=== PATIENT | male | born 1980 | race Caucasian/White ===

== ENCOUNTER 2018-11-30 08:31 | Inpatient (IN) | payer MEDICAID ==
[2018-11-30] MEDS ORDERED: HYDROmorphone 0.5 MG/0.5 ML SYRINGE ONE (10:42)
[2018-11-30 14:50] VITALS: BMI 44.3
[2018-11-30] MEDS ORDERED: Ondansetron ODT 4 MG TAB PO PRN (15:57)
[2018-11-30] MEDS ORDERED: Ondansetron PF 4 MG/2 ML Vial IVP PRN (15:57)
[2018-11-30] MEDS ORDERED: Acetaminophen 650 MG Suppository PR PRN (15:57)
[2018-11-30] MEDS ORDERED: Acetaminophen 325 MG TAB PO PRN (15:57)
[2018-11-30] MEDS ORDERED: Dextrose 5% in Water 1,000 ML IV PRN (16:17)
[2018-11-30] MEDS ORDERED: Dextrose 50% Abboject 50 ML SYRINGE SLOW IVP PRN (16:17)
[2018-11-30] MEDS ORDERED: HumaLOG 300 UNITS/3 ML VIAL SC PRN (16:17)
[2018-11-30] MEDS ORDERED: Ampicillin/Sulbactam 3 GM in Sodium Chloride 0.9% 100 ML IVPB SCH (16:30)
[2018-11-30] MEDS: Chlorhexidine Gluconate 15 ML UDCUP SSP SCH (16:58)
[2018-11-30] MEDS: Dexamethasone 4 MG TAB PO SCH (16:59)
[2018-11-30] MEDS: traMADol HCl 50 MG TAB PO PRN ×2 (17:02→20:45)
[2018-11-30 17:05] LABS: #Eosinphils 0.1 thou/uL (0.0-0.7); #Lymphocytes 2.5 thou/uL (1.20-3.40); #Monocytes 0.8 thou/uL (0.11-0.59); %Basophils 0.2 % (0.0-1.0); %Eosinophils 1.1 % (0.0-10.0); %Lymphocytes 22.1 % (21.0-51.0); %Monocytes 6.6 % (0.0-10.0); Hemoglobin 14.5 g/dL (14.0-18.0); Mean Corpuscular HGB CONC 33.7 g/dL (32.0-36.0); Mean Corpuscular Hemoglobin 30.7 pg (27.0-31.0); Mean Corpuscular Volume 90.9 fL (78.0-98.0); Mean Platelet Volume 7.1 fL (7.4-10.4); Platelet Count 250 thou/uL (130-400); RBC Distribution Width 12.3 % (11.5-14.5); Red Blood Cell (RBC) Count 4.72 mill/uL (4.70-6.10); White Blood Cell (WBC) Count 11.4 thou/uL (4.8-10.8)
[2018-11-30] MEDS: Sodium Chloride 0.9% 1,000 ML IV SCH (17:06)
[2018-11-30 17:19] LABS: Lactic Acid 1.3 mmol/L (0.5-2.2)
[2018-11-30 17:26] LABS: ALT (SGPT) 44 U/L (8-55); AST (SGOT) 24 U/L (5-34); Albumin 4.1 g/dL (3.5-5.0); Alkaline Phosphatase 54 U/L (40-150); Anion Gap 14 mmol/L (10-20); BUN (Urea Nitrogen) 13 mg/dL (8.9-20.6); Bilirubin, Total 0.5 mg/dL (0.2-1.2); Calc. Creatinine Clearance 308 mL/min (70-130); Calcium 9.2 mg/dL (7.8-10.44); Carbon Dioxide 21 mmol/L (22-29); Chloride 106 mmol/L (98-107); Estimated GFR-MDRD Greater than 90; Globulin 2.8 g/dL (2.4-3.5); Glucose 139 mg/dL (70-105); Potassium 3.7 mmol/L (3.5-5.1); Protein, Total 6.9 g/dL (6.0-8.3); Sodium 137 mmol/L (136-145)
[2018-11-30] MEDS ORDERED: Morphine 4 MG/ML VIAL SLOW IVP SCH (17:30)
--- NOTE | 2018-11-30 17:49 | HP ---
CHIEF COMPLAINT: Right-sided facial pain and facial swelling. HISTORY OF PRESENT ILLNESS: Mr. Sinha is a 38-year-old man, who presents with complaints of right upper tooth pain, that started 2 days ago, with associated swelling to the right cheek, which he self treated with leftover prednisone and Augmentin he had from a previous bronchitis infection. The patient did not seek any medical attention. He noted progressive worsening with generalized swelling of his cheek and lips with increasing pain involving to his nose. The patient states he has been trying to use his CPAP machine, which has been causing increasing discomfort and swelling. He therefore has had difficulty sleeping as unable to tolerate the machine. The patient denies any fevers, chills or sweats. He denies any difficulty swallowing or tongue swelling. No difficulty breathing. He denies having any chest pain. Denies having any nausea or vomiting. He initially presented to [facility], where he was treated with Zosyn and also given Dilaudid for pain. The patient states he has had dental abscesses before and has poor oral dentition. He has had oral surgery in the past due to removal of an impacted wisdom tooth. While in the emergency department, the patient underwent laboratory studies, which showed a white count of 14 and electrolytes were unremarkable as well as his renal function. No lactic acid was done. Per outside reports, he had no documented fevers and vital signs were unremarkable. The patient also underwent CT imaging of the face, sinus/jaw with contrast; however, no report is available. Dr. Torres is reviewing CD with images. PAST MEDICAL HISTORY: 1. Chronic back pain. 2. History of bronchitis. 3. Diabetes mellitus, type 2. 4. Chronic neck pain. 5. Neuropathy. 6. Sleep apnea. PAST SURGICAL HISTORY: 1. Cholecystectomy. 2. Surgery to the C-spine. SOCIAL HISTORY: The patient does smoke. Denies any alcohol use or illicit drug use. He smokes one pack per day for the last 20 years. ALLERGIES: DARVOCET. CURRENT MEDICATIONS: 1. Gabapentin. 2. Hydroxyzine. 3. Celexa. PHYSICAL EXAMINATION: GENERAL: The patient appears obese, well developed, and in no acute distress. Found sat up on the side of the bed. VITAL SIGNS: Temperature 97.4, pulse 75, respirations 16, O2 sat 93%, and blood pressure 123/69. HEENT: Normocephalic and atraumatic. Obvious facial swelling with oral swelling as well. No periorbital swelling. There is no warmth or edema noted. Tongue appears unremarkable. No drooling or stridor. The patient with tenderness to palpation of the right maxillary sinus and extending up to the bridge of his nose. No pain with palpation to the left maxillary sinus. No TMJ locking or pain. Poor general dentition. No bleeding. Complete oral exam completed by Dr. Torres. NECK: Supple without lymphadenopathy. LUNGS: Clear to auscultation bilaterally. CARDIAC: Regular rate and rhythm. CHEST: No chest wall tenderness. ABDOMEN: Obese, soft, nontender, and nondistended. Normoactive bowel sounds present. EXTREMITIES: No lower leg swelling or edema. NEUROLOGIC: Alert and oriented x3. SKIN: Without rash or jaundice. INVESTIGATIONS: As mentioned above in HPI. IMPRESSION AND PLAN: Mr. Sinha is a 38-year-old male, who is being referred for management of the followin. Right maxillary dental abscess. The patient started on Zosyn in the emergency department at [place]. Seen by Dr. Torres, who has advised using Unasyn instead as well as chlorhexidine gluconate rinses q.8 hours and Decadron for a total of 3 doses to help with the associated swelling. The patient likely to be discharged in the morning as per Dr. Torres for procedure as an outpatient unless no improvement with regard to swelling and pain and unable to tolerate procedure in the clinic. Further recommendations as per Dr. Torres. 2. Diabetes mellitus. The patient is not on any medications for this. In light of recent steroids and Decadron, we will monitor glucose and initiate insulin sliding scale. 3. Gastrointestinal prophylaxis and deep venous thrombosis prophylaxis. 4. Code status full. His surrogate decision maker is his significant other, Kristy Florentino. The patient's case was discussed with Dr. Gonzales, who agrees with plan of care as described above. Job ID: [id number]
[2018-11-30] MEDS: Nicotine 14 MG PATCH TD SCH (17:52)
[2018-11-30] MEDS: Clindamycin/D5W 600 MG in Premix Bag 1 BAG IVPB SCH (17:52)
[2018-11-30] MEDS ORDERED: Morphine 2 MG/ML SYRINGE SLOW IVP SCH (18:15)
[2018-11-30] MEDS: HumaLOG 300 UNITS/3 ML VIAL SC PRN (18:26)
[2018-11-30] MEDS: Gabapentin 400 MG CAP PO SCH (20:44)
[2018-11-30] MEDS: Famotidine/PF 20 mg/2ml Vial SLOW IVP SCH (20:47)
[2018-11-30] MEDS ORDERED: Chlorhexidine Gluconate 15 ML UDCUP SSP SCH (21:00)
[2018-11-30] MEDS ORDERED: Morphine 4 MG/ML VIAL SLOW IVP PRN (21:28)
[2018-11-30] MEDS ORDERED: HYDROcodone/Acetaminophen 5/325 mg Tablet PO PRN (21:28)
[2018-11-30] MEDS: HYDROcodone/Acetaminophen 5/325 mg Tablet PO PRN (21:55)
[2018-12-01] MEDS: Clindamycin/D5W 600 MG in Premix Bag 1 BAG IVPB SCH ×4 (00:01→18:30)
[2018-12-01] MEDS: Dexamethasone 4 MG TAB PO SCH ×2 (00:02→08:54)
[2018-12-01] MEDS: Chlorhexidine Gluconate 15 ML UDCUP SSP SCH ×3 (00:03→18:01)
[2018-12-01] MEDS: Nicotine 14 MG PATCH TD SCH (04:14)
[2018-12-01 06:01] LABS: #Lymphocytes 0.9 thou/uL (1.20-3.40); #Monocytes 0.3 thou/uL (0.11-0.59); #Neutrophils 11.8 thou/uL (1.40-6.50); %Basophils 0.1 % (0.0-1.0); %Eosinophils 0.2 % (0.0-10.0); %Lymphocytes 6.6 % (21.0-51.0); %Monocytes 2.2 % (0.0-10.0); %Neutrophils 90.9 % (42.0-75.0); Hemoglobin 14.3 g/dL (14.0-18.0); Mean Corpuscular HGB CONC 33.8 g/dL (32.0-36.0); Mean Corpuscular Hemoglobin 30.5 pg (27.0-31.0); Mean Corpuscular Volume 90.4 fL (78.0-98.0); Mean Platelet Volume 7.3 fL (7.4-10.4); Platelet Count 266 thou/uL (130-400); RBC Distribution Width 12.3 % (11.5-14.5)
[2018-12-01 06:19] LABS: Anion Gap 13 mmol/L (10-20); BUN (Urea Nitrogen) 10 mg/dL (8.9-20.6); Calc. Creatinine Clearance 312 mL/min (70-130); Calcium 9.2 mg/dL (7.8-10.44); Carbon Dioxide 23 mmol/L (22-29); Chloride 104 mmol/L (98-107); Estimated GFR-MDRD Greater than 90; Glucose 200 mg/dL (70-105); Potassium 4.5 mmol/L (3.5-5.1); Sodium 135 mmol/L (136-145)
[2018-12-01] MEDS: Sodium Chloride 0.9% 1,000 ML IV SCH (07:53)
[2018-12-01] MEDS: Famotidine/PF 20 mg/2ml Vial SLOW IVP SCH ×2 (08:00→22:00)
[2018-12-01] MEDS: Gabapentin 400 MG CAP PO SCH ×3 (08:54→21:58)
[2018-12-01] MEDS: Saccharomyces boulardii 250 MG CAP PO SCH (08:54)
[2018-12-01] MEDS: Citalopram 20 MG TAB PO SCH (08:55)
--- NOTE | 2018-12-01 11:29 | PDOC.PN ---
- Subjective Encounter Start Date: 12/01/18 Encounter Start Time: 11:28 Subjective: Patient with persistent pain in left anterior maxillary region, extending -: to his nose. Significant improvement with facial/lip swelling. -: Scheduled to have surgery this afternoon at 16:00. Complaining of feeling hungry, otherwise without any complaints. No n/v. Afebrile. - Objective Resuscitation Status - Order Detail: 11/30/18 15:57 Resuscitation Status Routine Co-Sign Provider: Resuscitation Status: FULL: Full Resuscitation Vital Signs & Weight: Vital Signs (12 hours) Temp Pulse Resp BP Pulse Ox 12/01/18 08:10 95 12/01/18 08:00 97.9 F 67 16 93/61 98 12/01/18 04:18 98.2 F 76 16 113/56 L 95 11/30/18 23:54 97.9 F 71 16 119/64 96 Weight Weight 345 lb I&O: 11/30/18 12/01/18 12/02/18 06:59 06:59 06:59 Intake Total 1465 Balance 1465 Result Diagrams: 12/01/18 05:39 12/01/18 05:39 Additional Labs: Accuchecks 12/01/18 11/30/18 11/30/18 05:30 20:55 18:12 POC Glucose 192 H 228 H 201 H Phys Exam - Physical Examination Constitutional: NAD HEENT: PERRLA, moist MMs Poor dentition, unable to open his mouth fully due to pain Neck: full ROM Respiratory: no wheezing, no rales, no rhonchi, clear to auscultation bilateral Cardiovascular: RRR Gastrointestinal: soft, positive bowel sounds obese Musculoskeletal: no edema, pulses present Neurological: normal sensation, moves all 4 limbs Psychiatric: normal affect, A&O x 3 Skin: no rash Dx/Plan (1) Abscess of maxilla Code(s): M27.2 - INFLAMMATORY CONDITIONS OF JAWS Status: Acute Plan: Continue IV Abx, For surgery for extraction of 7,8,9, this afternoon. Further recommendations per Dr. Torres. (2) Hyperglycemia due to type 2 diabetes mellitus Code(s): E11.65 - TYPE 2 DIABETES MELLITUS WITH HYPERGLYCEMIA Status: Acute Plan: Continue ISS, monitor glucose. 2 of 3 doses of steroids given. Confirm if on medications at home, if so resume home regimen. Monitor glucose (3) Pain Code(s): R52 - PAIN, UNSPECIFIED Status: Acute Plan: Continue hydrocodone for pain. - Plan cont current plan of care * .
[2018-12-01] MEDS ORDERED: Lidocaine 1% PF 5 ML VIAL ONE (11:40)
[2018-12-01] MEDS ORDERED: Rocuronium Bromide 10 MG/ML (10ML VIAL) ONE (11:40)
[2018-12-01] MEDS ORDERED: Ondansetron PF 4 MG/2 ML Vial ONE (11:40)
[2018-12-01] MEDS ORDERED: Ketorolac Tromethamine 30 MG/ML VIAL ONE (11:40)
[2018-12-01] MEDS ORDERED: Glycopyrrolate 0.2 MG/ML 5 ML SYRINGE ONE (11:40)
[2018-12-01] MEDS ORDERED: PROPOFOL 200 MG/20 ML VIAL ONE (11:40)
[2018-12-01] MEDS: HumaLOG 300 UNITS/3 ML VIAL SC PRN (12:05)
[2018-12-01] MEDS ORDERED: Hydrocortisone 1% Cream 30 GM TUBE ONE (16:20)
[2018-12-01] MEDS ORDERED: Lidocaine 1% w/Epinephrine 1:100K 20 ML VIAL ONE (16:20)
[2018-12-01] MEDS ORDERED: Chlorhexidine Gluconate 15 ML UDCUP SSP ONE (16:21)
[2018-12-01] MEDS ORDERED: Sodium Chloride 0.9% 10 ML ONE (16:21)
[2018-12-01] MEDS ORDERED: Bacitracin Zinc Ointment 30 gm TUBE ONE (16:21)
[2018-12-01] MEDS ORDERED: Ophthalmic Irrigation Solution 0 ML ONE (16:24)
[2018-12-01] MEDS ORDERED: Lidocaine 2% Jelly 5 ML TUBE ONE (16:58)
[2018-12-01] MEDS ORDERED: Fentanyl 100 MCG/2 ML VIAL ONE ×3 (16:58→18:31)
[2018-12-01] MEDS ORDERED: Promethazine HCl 25 MG/ML VIAL SLOW IVP PRN (17:46)
[2018-12-01] MEDS ORDERED: Promethazine HCl 25 MG/ML VIAL IM PRN (17:46)
[2018-12-01] MEDS ORDERED: Ondansetron HCl/PF 4 MG/2 ML Vial IVP PRN (17:46)
[2018-12-01] MEDS ORDERED: Labetalol HCl 100 MG/20 ML VIAL SLOW IVP PRN (19:22)
[2018-12-01] MEDS: HYDROcodone/Acetaminophen 5/325 mg Tablet PO PRN (21:57)
[2018-12-02] MEDS: Clindamycin/D5W 600 MG in Premix Bag 1 BAG IVPB SCH ×4 (00:39→17:38)
[2018-12-02] MEDS: Chlorhexidine Gluconate 15 ML UDCUP SSP SCH ×3 (00:40→17:38)
[2018-12-02] MEDS ORDERED: Lorazepam 1 MG TAB PO SCH (01:30)
[2018-12-02] MEDS: HYDROcodone/Acetaminophen 5/325 mg Tablet PO PRN ×4 (02:26→20:25)
[2018-12-02] MEDS: Sodium Chloride 0.9% 1,000 ML IV SCH ×2 (05:19→11:24)
[2018-12-02] MEDS: HumaLOG 300 UNITS/3 ML VIAL SC PRN ×3 (06:17→17:38)
[2018-12-02 06:21] LABS: #Eosinphils 0.1 thou/uL (0.0-0.7); #Lymphocytes 2.1 thou/uL (1.20-3.40); #Monocytes 0.7 thou/uL (0.11-0.59); #Neutrophils 9.7 thou/uL (1.40-6.50); %Eosinophils 0.8 % (0.0-10.0); %Lymphocytes 16.9 % (21.0-51.0); %Monocytes 5.2 % (0.0-10.0); %Neutrophils 77.2 % (42.0-75.0); Hemoglobin 13.3 g/dL (14.0-18.0); Mean Corpuscular HGB CONC 33.9 g/dL (32.0-36.0); Mean Corpuscular Hemoglobin 30.7 pg (27.0-31.0); Mean Corpuscular Volume 90.8 fL (78.0-98.0); Mean Platelet Volume 7.4 fL (7.4-10.4); Platelet Count 225 thou/uL (130-400); RBC Distribution Width 12.4 % (11.5-14.5); Red Blood Cell (RBC) Count 4.34 mill/uL (4.70-6.10); White Blood Cell (WBC) Count 12.5 thou/uL (4.8-10.8)
[2018-12-02 06:35] LABS: Anion Gap 14 mmol/L (10-20); BUN (Urea Nitrogen) 11 mg/dL (8.9-20.6); Calc. Creatinine Clearance 292 mL/min (70-130); Calcium 8.8 mg/dL (7.8-10.44); Carbon Dioxide 23 mmol/L (22-29); Chloride 102 mmol/L (98-107); Estimated GFR-MDRD Greater than 90; Glucose 250 mg/dL (70-105); Potassium 3.5 mmol/L (3.5-5.1); Sodium 135 mmol/L (136-145)
[2018-12-02] MEDS: Citalopram 20 MG TAB PO SCH (08:36)
[2018-12-02] MEDS: Saccharomyces boulardii 250 MG CAP PO SCH (08:36)
[2018-12-02] MEDS: Gabapentin 400 MG CAP PO SCH ×3 (08:36→20:24)
[2018-12-02] MEDS: Famotidine/PF 20 mg/2ml Vial SLOW IVP SCH ×2 (08:37→20:24)
--- NOTE | 2018-12-02 13:51 | PDOC.PN ---
- Subjective Encounter Start Date: 12/02/18 Encounter Start Time: 13:49 Subjective: Patient found sleeping. States in more pain following procedure. -: Has not had anything to eat yet, though Dr. Torres cleared him to -: advance diet as tolerated. He remains afebrile. No chest pain or sob. - Objective Resuscitation Status - Order Detail: 11/30/18 15:57 Resuscitation Status Routine Co-Sign Provider: Resuscitation Status: FULL: Full Resuscitation Vital Signs & Weight: Vital Signs (12 hours) Temp Pulse Resp BP Pulse Ox 12/02/18 11:10 97.8 F 61 18 124/67 96 12/02/18 07:40 97 12/02/18 07:20 97.8 F 70 18 109/65 97 12/02/18 04:00 98.4 F 80 18 126/64 97 Weight Weight 345 lb I&O: 12/01/18 12/02/18 12/03/18 06:59 06:59 06:59 Intake Total 1465 2235 Balance 1465 2235 Result Diagrams: 12/02/18 05:59 12/02/18 05:59 Additional Labs: Accuchecks 12/02/18 12/02/18 12/01/18 10:46 06:04 20:47 POC Glucose 206 H 244 H 151 H 12/01/18 15:53 POC Glucose 155 H Phys Exam - Physical Examination Constitutional: NAD CPAP in place Neck: full ROM Respiratory: clear to auscultation bilateral Cardiovascular: RRR Gastrointestinal: soft, non-tender, no distention obese Musculoskeletal: no edema Neurological: normal sensation, moves all 4 limbs Psychiatric: A&O x 3 Skin: no rash Dx/Plan (1) Abscess of maxilla Code(s): M27.2 - INFLAMMATORY CONDITIONS OF JAWS Status: Acute Plan: S/p Anterior maxillary abscess I&D, removal of 1,2,[address] Torres, large bony defect 7-9. Continue IV Abx. Further recommendations per Dr. Torres. (2) Hyperglycemia due to type 2 diabetes mellitus Code(s): E11.65 - TYPE 2 DIABETES MELLITUS WITH HYPERGLYCEMIA Status: Chronic (3) Pain Code(s): R52 - PAIN, UNSPECIFIED Status: Acute - Plan cont current plan of care, continue antibiotics, out of bed/ambulate, DVT proph w/SCDs Given extent of infection/bony involvement and IV Abx, patient qualifies -: for inpatient stay per discussion with [facility]. * .
[2018-12-02] MEDS: Nicotine 14 MG PATCH TD SCH (17:38)
[2018-12-02] MEDS: Senokot S 8.6-50 MG TAB PO PRN (17:47)
[2018-12-03] MEDS: Chlorhexidine Gluconate 15 ML UDCUP SSP SCH ×2 (00:37→08:56)
[2018-12-03] MEDS: Clindamycin/D5W 600 MG in Premix Bag 1 BAG IVPB SCH ×3 (01:06→12:45)
[2018-12-03] MEDS: HYDROcodone/Acetaminophen 5/325 mg Tablet PO PRN ×2 (02:19→12:51)
[2018-12-03] MEDS: Senokot S 8.6-50 MG TAB PO PRN (02:51)
[2018-12-03 05:35] LABS: Anion Gap 13 mmol/L (10-20); BUN (Urea Nitrogen) 11 mg/dL (8.9-20.6); Calc. Creatinine Clearance 312 mL/min (70-130); Calcium 8.7 mg/dL (7.8-10.44); Carbon Dioxide 20 mmol/L (22-29); Chloride 107 mmol/L (98-107); Estimated GFR-MDRD Greater than 90; Glucose 191 mg/dL (70-105); Potassium 4.1 mmol/L (3.5-5.1); Sodium 136 mmol/L (136-145)
[2018-12-03 05:55] LABS: Band 1 % (5-11); Eosinophils 1 % (0-10); Hemoglobin 13.5 g/dL (14.0-18.0); Lymphocytes 35 % (21-51); MDiff Complete? YES; Mean Corpuscular HGB CONC 33.2 g/dL (32.0-36.0); Mean Corpuscular Volume 93.4 fL (78.0-98.0); Monocytes 4 % (0-10); Neutrophil 59 % (42-75); Platelet Count 173 thou/uL (130-400); RBC Distribution Width 12.5 % (11.5-14.5); Red Blood Cell (RBC) Count 4.37 mill/uL (4.70-6.10); White Blood Cell (WBC) Count 9.1 thou/uL (4.8-10.8)
[2018-12-03] MEDS: Sodium Chloride 0.9% 1,000 ML IV SCH (06:00)
[2018-12-03] MEDS: HumaLOG 300 UNITS/3 ML VIAL SC PRN ×2 (06:20→12:45)
[2018-12-03] MEDS: Saccharomyces boulardii 250 MG CAP PO SCH (08:56)
[2018-12-03] MEDS: Citalopram 20 MG TAB PO SCH (08:56)
[2018-12-03] MEDS: Famotidine/PF 20 mg/2ml Vial SLOW IVP SCH (08:56)
[2018-12-03] MEDS: Gabapentin 400 MG CAP PO SCH ×2 (12:45→15:47)
[2018-12-03 15:55] VITALS: BP 130/74; TEMP 98.6
--- NOTE | 2018-12-04 12:26 | DIS ---
DATE OF ADMISSION: 11/30/2018 DATE OF DISCHARGE: 12/03/2018 DISCHARGE DIAGNOSES: 1. Maxillary dental abscess. 2. Diabetes mellitus. 3. Hyperglycemia. HISTORY: The patient is a 38-year-old male who presented to [facility] with the complaints of right upper tooth pain that had been present for a couple of days. He had some swelling associated with the face and cheek area, so he took some prednisone and Augmentin that he happened to have from prior bronchitis infection, that did not work and he had increased swelling of his face and nose , and could not use his CPAP machine. He presented to [facility] and he was treated with Zosyn and Dilaudid. Had a white count of 14, and had a CT scan which apparently revealed some area of abscess and due to lack of available specialist, the patient was transferred to this facility. He was started on chlorhexidine rinses, Unasyn, and Decadron. HOSPITAL COURSE: The patient was subsequently taken by Dr. Torres for surgical debridement with removal of teeth including 1, 2, 8 and 9 and a large bony defect was noted from 7 through 9. He was continued on IV antibiotics and required some IV pain management and he was liberated to advance his diet. On the day of discharge, his temperature was 98.6, pulse 77, respirations 16, O2 saturation 98% on room air, BP 130/74. He was awake and alert. He had eaten food without difficulty. Heart was regular rate and rhythm. Lungs were clear. Abdomen, benign. Oral exam revealed postsurgical changes in the maxilla anteriorly with no persistent drainage noted. DISPOSITION: The patient is discharged to home. DISCHARGE MEDICATIONS: 1. He will be on clindamycin 300 mg p.o. q.6 hours. 2. Chlorhexidine 15 mL swish and spit q.i.d. 3. Tylenol No. 3 p.r.n. 4. He will continue citalopram 40 mg daily. 5. Gabapentin 600 mg p.o. t.i.d. DISCHARGE INSTRUCTIONS: He is to follow up with his primary care provider once he establishes one and his activity is as tolerated. He is on a regular diet. He can return to the hospital should he have any problems prior to the time of followup. Time spent in discharge activities, including face to face time with the patient , was 31 minutes. Job ID: [id number] [facility]
--- NOTE | 2018-12-04 14:54 | OP ---
DATE OF PROCEDURE: 12/01/2018 PREOPERATIVE DIAGNOSES: 1. Infected teeth 1, 2, 8, 9. 2. Vestibular abscess of the right anterior maxilla. POSTOPERATIVE DIAGNOSES: 1. Infected teeth 1, 2, 8, 9. 2. Vestibular abscess of the right anterior maxilla secondary to infected tooth 8. PROCEDURES PERFORMED: 1. Incision and drainage of right anterior maxillary abscess. 2. Removal of teeth 1, 2, 8, 9. INDICATION: This is a 38-year-old male with past medical history significant for diabetes and poor oral health and hygiene, who presents on transfer from an outside hospital with an abscess of the right anterior maxillary vestibule secondary to a large periapical pathology of retained root tip of tooth number 8. Additionally, the patient has grossly carious and decayed teeth numbers 1, 2, and 9 in the maxilla. The patient is brought to the operating room for treatment of this acute infection. DESCRIPTION OF PROCEDURE: The patient was identified in the preoperative holding area and all questions were answered. The patient was subsequently transferred to the operating room and transferred to the operating room table in supine position by the Anesthesia Service. The patient was subsequently intubated via the oral route after induction of a general anesthetic without complication. A surgical time-out was performed with all present. The patient was prepped and draped in sterile manner. The oral cavity and oropharynx were suctioned free of debris and a throat pack was placed. The oral cavity was prepped with Peridex oral rinse and toothbrush. Local anesthetic was delivered to the right maxillary region and tooth number 9 region. Teeth numbers 1, 2, 8, 9 were elevated with dental elevators and removed with combination of elevators and Mayers. A crestal and sulcular incision was made in the anterior maxilla extending from roughly tooth number 7 to 10 region. This incision was extended distally in the number 6 area region as well. A full-thickness mucoperiosteal flap was raised into the right anterior maxillary vestibule and significant amount of purulent discharge was decompressed. Additionally, a large buccal defect was noted in the maxillary bone and tooth number 8 region, and curettes were used to debride this area free of purulent necrotic tissues as well as inflammatory tissue. After cleaning the abscess cavity, it was felt that tooth number 7 could be left at this time, but will need to be watched clinically as the patient heals. The anterior maxilla was opened further in a subperiosteal fashion to ensure that all abscess is completely decompressed, and all necrotic and inflamed tissue was debrided. The soft tissue flap and the extraction sockets were then copiously irrigated with normal saline infused with bacitracin. After copious irrigation, the soft tissue flap in the anterior maxilla was loosely resuspended using interrupted 4-0 chromic gut sutures. A gauze pressure pack was placed in the right maxillary region. The oral cavity and oropharynx were suctioned free of debris and the throat pack was removed at this time. An oral airway was placed and the patient was then turned over to Anesthesia for emergence and extubation, which ensued without complication. INTRAVENOUS FLUIDS: Please see anesthetic record. ESTIMATED BLOOD LOSS: 5 mL. COMPLICATIONS: None. SPECIMENS: None. DRAINS: None. IMPLANTS: None. FINDINGS: Moderate, foul purulent discharge from the vestibular abscess in a right anterior maxilla. A large bony defect in the tooth number 8, extending to the 7 region secondary to infection of tooth number 8. DISPOSITION: The patient tolerated the procedure well and was transferred to the recovery room in good condition. Job ID: [id number]
--- NOTE | 2018-12-08 03:17 | CON ---
DATE OF CONSULTATION: 11/30/2018 CONSULTING PHYSICIAN: Vel Gonzales MD HISTORY OF PRESENT ILLNESS: This is a 38-year-old male, who presents with increasing tooth pain in the anterior maxilla over the past week with subsequent swelling involving the anterior maxilla and upper lip. The patient presented to an outside hospital and was transferred to [facility] for higher level of care due to uncontrolled pain and infection involving the anterior maxilla. PAST MEDICAL HISTORY: Diabetes, sleep apnea, peripheral neuropathy. PAST SURGICAL HISTORY: Cholecystectomy, ACDF. ALLERGIES: NO KNOWN DRUG ALLERGIES. MEDICATIONS: 1. Celexa. 2. Gabapentin. 3. Hydroxyzine. REVIEW OF SYSTEMS: Complaining of significant pain in the upper lip and anterior maxillary region. No trismus. No odynophagia or dysphagia. No fevers or chills. PHYSICAL EXAMINATION: VITAL SIGNS: Blood pressure 123/69, temperature 97.4, heart rate 75, respiratory rate 16, and 93% oxygen on room air. GENERAL: Alert and oriented x3. No apparent distress. HEAD AND NECK: The patient has moderate edema of the upper lip, which is exquisitely tender to touch. No fluctuance noted in the upper lip. On retraction of the upper lip, the patient has fluctuant mass over the maxillary vestibule in the area of tooth 7 and 8 facially. Teeth numbers 8 and 9 are carious, retained root tips as are teeth 1 and 2. The patient has compromised oral hygiene and appears to have untreated decay throughout the mouth. Other than the localized swelling to the anterior maxilla and upper lip region, the rest of the mouth and face are without signs of swelling or edema. LABORATORY DATA: CBC shows a white blood cell count of 14, hemoglobin of 14.5, and platelets of 253. The patient has a glucose of 240. CT scan of the face shows a large periapical unilocular radiolucency in the apical region of tooth 8, extending to area of tooth number 7. The patient also was noted to have a fluid collection in the facial vestibule over tooth number 8 region. The patient does noted to have retained carious roots 1, 2, 8, 9, and a periapical radiolucency involving a retained root #32 as well. As noted, clinically, the patient has generalized dental decay throughout the dentition. ASSESSMENT: 1. Infected teeth 1, 2, 8, 9. 2. Vestibular abscess and periapical pathology in the tooth number 8 region. PLAN: 1. Removal of teeth 1, 2, 8, 9, and incision and drainage of the right maxillary anterior vestibular abscess in the operating room under general anesthesia. Possible removal of tooth number 7, depending on how healthy it appears after the abscess periapical pathology and tooth number 8 removed. 2. Continue IV antibiotics and Peridex rinses b.i.d. The patient should ambulate and get out of bed. The patient should be n.p.o. past midnight. Job ID: [id number]
== END 2018-12-03 16:10 | disposition home or self-care (01) | DRG 158 ==
LOC: ERS 08:31 → OBSVTOIN 12:20 → SURG A 12:20
PROVIDERS: ADMIT Internal Medicine; ATTEND Internal Medicine
PROC: 0CTW0Z1 Resection of Upper Tooth, Multiple, Open Approach (ICD-10-PCS; principal; 2018-12-01)
PROC: 0C9W0Z0 Drainage of Upper Tooth, Open Approach, Single (ICD-10-PCS; 2018-12-01)
DX: K04.7 Periapical abscess without sinus (principal); Z68.41 Body mass index [BMI] 40.0-44.9, adult; E11.65 Type 2 diabetes mellitus with hyperglycemia; G89.29 Other chronic pain; E11.40 Type 2 diabetes mellitus with diabetic neuropathy, unspecified; F17.210 Nicotine dependence, cigarettes, uncomplicated; E66.01 Morbid (severe) obesity due to excess calories; G47.30 Sleep apnea, unspecified; M48.00 Spinal stenosis, site unspecified; Z90.49 Acquired absence of other specified parts of digestive tract; Z79.4 Long term (current) use of insulin
CPT/HCPCS: 36415; 36416; 80048; 80053; 83605; 85025; 96361; 96374; J1170; J1885; J2001; J2270; J2405; J2704; J3010; J3490; J8540; S0028